=== PATIENT | female | born 1950 | race Caucasian/White ===

== ENCOUNTER 2022-12-06 13:32 | Emergency (ER) | payer MEDICARE ==
[2022-12-06] MEDS ORDERED: Boostrix 0.5 ML (Tdap) VIAL (>/=7 yrs of age) ONE (13:53)
[2022-12-06] MEDS ORDERED: Lidocaine 1% w/Epinephrine 1:100K 20 ML VIAL ONE (13:53)
[2022-12-06] MEDS ORDERED: Ibuprofen 800 MG TAB ONE (13:53)
[2022-12-06] MEDS ORDERED: Bacitracin 1 PK ONE (14:39)
== END 2022-12-06 14:56 | disposition home or self-care (01) ==
LOC: MADERS 13:32
DX: S61.411A Laceration without foreign body of right hand, initial encounter (principal); S20.411A Abrasion of right back wall of thorax, initial encounter; E78.5 Hyperlipidemia, unspecified; I10 Essential (primary) hypertension; Z79.899 Other long term (current) drug therapy; Z23 Encounter for immunization; W22.8XXA Striking against or struck by other objects, initial encounter
CPT/HCPCS: 12001; 90471; 90715